=== PATIENT | male | born 1970 | race African-American/Black ===

== ENCOUNTER 2016-11-09 11:24 | Emergency (ER) | payer BC, MEDICAID ==
[~2016-11-09] VITALS: Ht 185.4 cm; Wt 86.2 kg
[2016-11-09 11:34] VITALS: BP 124/68
[2016-11-09] MEDS ORDERED: HYDROCODONE/APAP 5/325MG 1 EACH TABLET PO ONE (12:30)
[2016-11-09] MEDS ORDERED: HYDROCODONE/APAP 5/325MG 1 EACH TABLET ONE (12:31)
== END 2016-11-09 14:54 | disposition home or self-care (01) ==
LOC: ER 11:25
DX: S63.205A Unspecified subluxation of left ring finger, initial encounter (principal); S62.603A Fracture of unspecified phalanx of left middle finger, initial encounter for closed fracture; W20.8XXA Other cause of strike by thrown, projected or falling object, initial encounter; Y93.89 Activity, other specified; Y92.89 Other specified places as the place of occurrence of the external cause; Y99.9 Unspecified external cause status
CPT/HCPCS: 26725; 73130; 99284; A4606; Z7610